=== PATIENT | male | born 1950 | race Caucasian/White ===

== ENCOUNTER 2019-05-05 19:35 | Emergency (ER) | payer MEDICARE, BC ==
--- NOTE | 2019-05-05 20:00 | ED Physician Chart ---
ED Chief Complaint/HPI - Patient Information Date Seen:: 05/05/19 Time Seen:: 19:57 Chief Complaint:: step on eder nail History of Present Illness:: 68 yr old male s/p step on eder nail [employer] while working in the garden no bleeding no reddness or deformity Allergies:: Allergies Allergy/AdvReac Type Severity Reaction Status Date / Time amoxicillin Allergy Verified 05/05/19 19:39 Vitals:: Vital Signs - 8 hr 05/05/19 19:35 Temp 98.1 F HR 70 RR 18 BP 140/70 O2 Sat % 93 ED Review of Systems - Review of Systems Skin: Other (step on eder nail middle of lt foot) ED Past Medical History - Past Medical History Past Medical History: No significant medical hx Family Medical History - Family Member Mother History Unknown: Yes ED Physical Exam - Physical Examination General/Constitutional: Awake, Well-developed, well-nourished, Alert, No distress, GCS 15, Non-toxic appearing, Ambulatory Head: Atraumatic Eyes: Lids, conjuctiva normal, PERRL, EOMI Skin: Nl inspection, No rash, No skin lesions, No ecchymosis, Well hydrated, No lymphadenopathy ENMT: External ears, nose nl, Nasal exam nl, Lips, teeth, gums nl Neck: Nontender, Full ROM w/o pain, No JVD, No nuchal rigidity, No bruit, No mass, No stridor Respiratory: Nl effort/Exclusion, Clear to Auscultation, No Wheeze/Rhonchi/Rales Cardio Vascular: RRR, No murmur, gallop, rubs, NL S1 S2 GI: No tenderness/rebounding/guarding, No organomegaly, No hernia, Normal BS's, Nondistended, No mass/bruits, No McBurney tenderness : No CVA tenderness Extremities: No tenderness or effusion, Full ROM, normal strength in all extremities, No edema, Normal digits & nails Neuro/Psych: Alert/oriented, DTR's symmetric, Normal sensory exam, Normal motor strength, Judgement/insight normal, Mood normal, Normal gait, No focal deficits Misc: Normal back, No paraspinal tenderness ED Assessment - Assessment General Assessment: step on nail ED Septic Shock - . Is Septic Shock (SBP<90, OR Lactate>4 mmol\L) present?: No - <6hrs of presentation: Vital Signs: Vital Signs - 8 hr 05/05/19 19:35 Temp 98.1 F HR 70 RR 18 BP 140/70 O2 Sat % 93 ED Reassessment (Disposition) - Reassessment Reassessment:: step on nail - Diagnosis Diagnosis:: step on nail - Aftercare/Follow up Instructions Aftercare/Follow-Up Instructions:: Counseled pt regarding lab results/diagnosis & need follow up - Patient Disposition Discharge/Transfer:: Home Condition at Disposition:: Stable
== END 2019-05-05 20:10 | disposition home or self-care (01) ==
LOC: ER 19:35
DX: S91.332A Puncture wound without foreign body, left foot, initial encounter (principal); Z88.1 Allergy status to other antibiotic agents; W22.8XXA Striking against or struck by other objects, initial encounter; Y93.89 Activity, other specified; Y92.89 Other specified places as the place of occurrence of the external cause; Y99.8 Other external cause status
CPT/HCPCS: Z7502